=== PATIENT | male | born 1950 | race Caucasian/White ===

== ENCOUNTER → 2017-02-12 | Outpatient (CLI) | payer OTHER, MEDICARE | LOC: CIMAGING 15:06 | PROVIDERS: ATTEND Internal Medicine | DX: R22.1 Localized swelling, mass and lump, neck (principal); M54.2 Cervicalgia | CPT/HCPCS: 76536-PO ==

== ENCOUNTER 2017-02-17 14:36 | Observation (INO) | payer OTHER, MEDICARE ==
[2017-02-17] MEDS ORDERED: ONDANSETRON 4 MG/2 ML VIAL ONE (14:43)
[2017-02-17] MEDS ORDERED: HYDROmorphONE/DILAUDID 1 MG/ML SYR ONE (14:43)
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
[2017-02-17] MEDS ORDERED: ONDANSETRON 4 MG/2 ML VIAL IVP ONE (14:51)
[2017-02-17] MEDS ORDERED: HYDROmorphONE/DILAUDID 1 MG/ML SYR IVP ONE ×3 (14:51→18:49)
[2017-02-17] MEDS ORDERED: IOPAMIDOL (ISOVUE-300) 100 ML BTL ONE (16:05)
[2017-02-17 16:07] LABS: % IMMATURE GRANULYOCYTES 0.3 % (0.0-1.1); ABSOLUTE IMMATURE GRANULOCYTES 0.02 10^3/uL (0.00-0.10); ADD DIFF? NO; ADD MORPH? NO; ADD SCAN? NO; ATYPICAL LYMPHOCYTE FLAG 0 (0-99); FRAGMENT RBC FLAG 0 (0-99); HEMATOCRIT 44.3 % (40.0-51.0); LEFT SHIFT FLG 0 (0-99); LIPEMIA HEMOLYSIS FLAG 90 (0-99); MEAN CELL HEMOGLOBIN 33.7 pg (27.9-34.1); MEAN CELL HEMOGLOBIN CONCENTR. 36.1 g/dL (32.4-36.7); MEAN CELL VOLUME 93.3 fL (81.5-99.8); MEAN PLATELET VOLUME 10.1 fL (8.7-11.7); PLATELET CLUMPS FLAG 0 (0-99); PLATELET COUNT 247 10^3/uL (150-400); RED BLOOD CELL COUNT 4.75 10^6/uL (4.40-6.38); RED CELL DISTRIBUTION WIDTH 12.1 % (11.5-15.2)
[2017-02-17 16:16] LABS: APTT 22.3 SEC (23.0-38.0); INR 1.07 (0.83-1.16); PROTIME(PATIENT) 13.8 SEC (12.0-15.0)
[2017-02-17 16:21] LABS: ANION GAP 16 mEq/L (8-16); CALCIUM 10.1 mg/dL (8.5-10.4); CARBON DIOXIDE 23 mEq/l (22-31); CHLORIDE 98 mEq/L (97-110); CREATININE 1.3 mg/dL (0.7-1.3); GLOMERULAR FILTRATION RATE 56; GLUCOSE 132 mg/dL (70-100); POTASSIUM 4.1 mEq/L (3.5-5.2); SODIUM 137 mEq/L (134-144)
[2017-02-17] MEDS ORDERED: HYDROmorphONE/DILAUDID 1 MG/ML SYR IVP PRN (23:40)
[2017-02-17] MEDS ORDERED: KETOROLAC 30 MG/1 ML SDV IVP ONE (23:45)
[2017-02-18] MEDS: OXYCODONE/APAP 5/325 TAB PO PRN ×5 (00:15→13:23)
[2017-02-18] MEDS ORDERED: ONDANSETRON 4 MG/2 ML VIAL IVP PRN (00:50)
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
[2017-02-18] MEDS ORDERED: D5W 1/2 NS W/ 20 KCl/L 1,000 ML IV SCH (01:00)
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
[2017-02-18] MEDS: KETOROLAC 15 MG/1 ML SDV IVP SCH ×2 (05:11→13:07)
[2017-02-18 05:27] LABS: % IMMATURE GRANULYOCYTES 0.4 % (0.0-1.1); ABSOLUTE IMMATURE GRANULOCYTES 0.02 10^3/uL (0.00-0.10); ADD DIFF? NO; ADD MORPH? NO; ADD SCAN? NO; ATYPICAL LYMPHOCYTE FLAG 0 (0-99); FRAGMENT RBC FLAG 0 (0-99); HEMATOCRIT 38.9 % (40.0-51.0); HEMOGLOBIN 13.8 g/dL (13.7-17.5); LEFT SHIFT FLG 0 (0-99); LIPEMIA HEMOLYSIS FLAG 90 (0-99); MEAN CELL HEMOGLOBIN 33.3 pg (27.9-34.1); MEAN CELL HEMOGLOBIN CONCENTR. 35.5 g/dL (32.4-36.7); MEAN PLATELET VOLUME 9.6 fL (8.7-11.7); PLATELET CLUMPS FLAG 0 (0-99); PLATELET COUNT 150 10^3/uL (150-400); RED BLOOD CELL COUNT 4.14 10^6/uL (4.40-6.38); RED CELL DISTRIBUTION WIDTH 12.2 % (11.5-15.2)
[2017-02-18] MEDS ORDERED: KETOROLAC 15 MG/1 ML SDV IVP SCH (06:00)
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
[2017-02-18] MEDS ORDERED: HYDROmorphONE/DILAUDID 2 MG TAB PO PRN (08:11)
[2017-02-18 08:14] VITALS: PULSE 59; RESP 14; TEMP 98.4; O2SAT 100
[2017-02-18 11:55] VITALS: BP 134/80
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
--- NOTE | 2017-02-18 15:49 | WOCRNPDOC ---
WOCRN Advanced Assessment Note - Skin Integrity Problem, Advanced Assess Right Elbow Abrasion Dressing Type: Gauze, Kerlix Skin Integrity Problem Comment: Dressing strongly stuck to wound bed. Asked RN to soak and remove and replace with wound gel and allevyn life after cleansing. Did not visualize wound. RN reported wound appears shallow like other wounds on back. Right Lateral Buttock Abrasion Dressing Type: Gauze Skin Integrity Problem Comment: Partial thickness dried wound. No sign of infection nor debris. May leave open to air. No concerns. Right Lower Lateral Leg Dressing Type: Allevyn Life Dressing Description: Clean/Dry, Intact Exudate Amount: Scant Exudate Characteristic(s): Bloody Integumentary Issue Intervention: Visualized Under Dressing Wound Bed Color: Red Wound Bed Constitution: Smooth Tissue Site Measurement - Head-to-Toe Length X Width X Depth (cm): 1.4x1x0.3 Skin Integrity Problem Comment: Wound full thickness. Continue with Allevyn life and wound gel for 1-2 weeks before leaving open to air to allow base to granulate in. Reported to patient and , as well as ZEKE Gregory. Right Back Abrasion Exudate Amount: None Skin Integrity Problem Comment: Partial thickness and dried. No concerns. No sign of debris or infection. May leave open to air.
[2017-02-18] MEDS ORDERED: FLUoxetine 20 MG CAP PO SCH (18:00)
[2017-02-18] MEDS ORDERED: buPROPion XL 150 MG TAB PO SCH (18:00)
[2017-02-18] MEDS ORDERED: CHOLECALCIFEROL VIT D3 2,000 UNITS TAB/CAP PO SCH (21:00)
== END 2017-02-18 15:38 | disposition home or self-care (01) ==
LOC: EDUNIT# → F3N 20:00
PROVIDERS: ADMIT Surgery; ATTEND Surgery
PROC: 0CQ0XZZ Repair Upper Lip, External Approach (ICD-10-PCS; principal; 2017-02-17)
PROC: 0PSHXZZ Reposition Right Radius, External Approach (ICD-10-PCS; 2017-02-17)
DX: S02.2XXA Fracture of nasal bones, initial encounter for closed fracture (principal); S02.5XXA Fracture of tooth (traumatic), initial encounter for closed fracture; S62.014A Nondisplaced fracture of distal pole of navicular [scaphoid] bone of right wrist, initial encounter for closed fracture; S52.501A Unspecified fracture of the lower end of right radius, initial encounter for closed fracture; S01.511A Laceration without foreign body of lip, initial encounter; S09.90XA Unspecified injury of head, initial encounter; S13.4XXA Sprain of ligaments of cervical spine, initial encounter; S50.311A Abrasion of right elbow, initial encounter; V18.0XXA Pedal cycle driver injured in noncollision transport accident in nontraffic accident, initial encounter; Y92.488 Other paved roadways as the place of occurrence of the external cause; Y93.55 Activity, bike riding; Y99.8 Other external cause status; Z96.651 Presence of right artificial knee joint; G89.29 Other chronic pain; M79.642 Pain in left hand; M50.30 Other cervical disc degeneration, unspecified cervical region; M51.36 Other intervertebral disc degeneration, lumbar region; R40.2412 Glasgow coma scale score 13-15, at arrival to emergency department
CPT/HCPCS: 12011; 25605; 70450; 70486; 71010; 71260; 72125; 72129; 72132; 72141; 73080; 73110; 73130; 74177; 92523; 96374; 96375; 96376; 97161; 97165; 99285; G0378; G8978; G8979; G8980; G8987; G8988; G8989; G9165; G9166; J1170; J1885; J2405; Q9967; 81291-90; 82607-90; 82784-90; 83516-90; 84402-90; 84481-90; 86812-90

== ENCOUNTER → 2017-07-21 | Outpatient (CLI) | payer OTHER, MEDICARE | LOC: FIMAGING 07:18 | PROVIDERS: ATTEND Physician Assistant | DX: R10.13 Epigastric pain (principal); K82.9 Disease of gallbladder, unspecified; N28.1 Cyst of kidney, acquired ==

== ENCOUNTER → 2017-11-12 | Outpatient (CLI) | payer OTHER, MEDICARE ==
[~2017-11-12] MED LIST: GADOBUTROL 10 ML VIAL IVP ONE
== END ==
LOC: FIMAGING 15:09
PROVIDERS: ATTEND Physician Assistant
DX: R74.8 Abnormal levels of other serum enzymes (principal); K80.20 Calculus of gallbladder without cholecystitis without obstruction; Q44.1 Other congenital malformations of gallbladder
CPT/HCPCS: 74183; A9585